=== PATIENT | male | born 1975 | race Hispanic/Latino ===

== ENCOUNTER 2020-09-06 20:44 | Emergency (ER) | payer OTHER ==
[~2020-09-06] VITALS: Ht 177.8 cm; Wt 68.0 kg
== END 2020-09-07 12:39 | disposition home or self-care (01) ==
LOC: ED 20:44
DX: F20.9 Schizophrenia, unspecified (principal); F15.10 Other stimulant abuse, uncomplicated; Z72.820 Sleep deprivation; F17.200 Nicotine dependence, unspecified, uncomplicated
CPT/HCPCS: 80053; 80176; 81001; 84443; 85025; 99284; A9270-GY

== ENCOUNTER 2020-09-08 06:54 | Emergency (ER) | payer OTHER ==
[~2020-09-08] VITALS: Ht 177.8 cm; Wt 68.0 kg
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
== END 2020-09-08 08:08 | disposition home or self-care (01) ==
LOC: ED 06:54
DX: M79.89 Other specified soft tissue disorders (principal)
CPT/HCPCS: 73130; 99283-25